=== PATIENT | male | born 1990 | race African-American/Black ===

== ENCOUNTER 2017-12-27 07:43 | Emergency (ER) | payer OTHER ==
[~2017-12-27] VITALS: Ht 177.8 cm; Wt 63.6 kg
[2017-12-27 08:34] VITALS: BP 127/75; PULSE 96; RESP 15; TEMP 97.7
--- NOTE | 2017-12-27 09:53 | PD ---
HPI Chief Complaint: Psychiatric Symptoms Time Seen by Provider: 09:33 Travel History International Travel<30 days: No Contact w/Intl Traveler<30days: No Traveled to known affect area: No History of Present Illness HPI HPI is limited secondary to patient's altered mental status and being uncooperative. He is lethargic and easily arousable. According to the Shah act report the patient was running in and out of traffic. The patient says that this was not true. He denies suicidal or homicidal ideations. He denies illicit drug use. Denies alcohol use. Unknown duration. Unknown onset. Symptoms are moderate to severe in severity. No known aggravating or relieving factors. Unknown if he has a primary care provider. Would not answer if he had significant past medical history. Denies allergies. When asked if he has having any chest pain, shortness of breath, abdominal pain, vomiting, change in urine or stool, he says no. No other modifying factors or associated signs and symptoms. PFSH Social History Tobacco Use: No Allergies-Medications (Allergen,Severity, Reaction): Coded Allergies: No Known Allergies (Unverified , 12/27/17) Review of Systems Except as stated in HPI: all other systems reviewed are Neg Physical Exam Narrative GENERAL: Well-nourished, well-developed male patient, in no acute distress; lethargic and easily arousable SKIN: Warm and dry. HEAD: Atraumatic. Normocephalic. EYES: Pupils equal and round. ENT: Mucosa pink and moist. NECK: Supple. Trachea midline. CARDIOVASCULAR: Regular rate and rhythm. No murmur appreciated. RESPIRATORY: No accessory muscle use. Clear to auscultation. Breath sounds equal bilaterally. GASTROINTESTINAL: Abdomen soft, non-tender, nondistended. Hepatic and splenic margins not palpable. Bowel sounds are active 4 quadrants. MUSCULOSKELETAL: No obvious deformities. No clubbing. No cyanosis. No edema. NEUROLOGICAL: Lethargic and easily arousable. And oriented. No obvious cranial nerve deficits. Motor grossly within normal limits. Slurred speech. Moves all extremities. 5/5 strength to all extremities. PSYCHIATRIC: No delusional thought processes. No hallucinations. Data Data Last Documented VS Vital Signs Date Time Temp Pulse Resp B/P (MAP) Pulse Ox O2 Delivery O2 Flow Rate FiO2 12/27/17 08:34 97.7 96 15 127/75 (92) Orders Orders Complete Blood Count With Diff (12/27/17 09:15) Comprehensive Metabolic Panel (12/27/17 09:15) Thyroid Stimulating Hormone (12/27/17 09:15) Psych Screen (12/27/17 09:15) Drug Screen, Random Urine (12/27/17 09:15) Alcohol (Ethanol) (12/27/17 09:15) Salicylates (Aspirin) (12/27/17 09:15) Tylenol (Acetaminophen) (12/27/17 09:15) Sodium Chlor 0.9% 1000 Ml Inj (Ns 1000 M (12/27/17 10:00) Ct Brain W/O Iv Contrast(Rout) (12/27/17 ) MDM Medical Decision Making Medical Screen Exam Complete: Yes Emergency Medical Condition: Yes Medical Record Reviewed: Yes Differential Diagnosis Intoxication, polysubstance abuse, psychosis, suicidal attempt, medical clearance for psychiatric admission Narrative Course Patient presents under a Shah act. Physical examination and vital signs are essentially unremarkable. Patient has no medical complaints to report. Psych screen has been ordered. If the laboratory results are unremarkable, the patient will be medically cleared for psychiatric evaluation and disposition. CT had ordered for altered mental status and concludes: No acute disease. Diagnosis Primary Impression: Medical clearance for psychiatric admission Additional Impression: Altered mental status Qualified Codes: R41.82 - Altered mental status, unspecified Condition: Stable Zoe Charles Dec 27, 2017 09:53
[2017-12-27] MEDS ORDERED: SODIUM CHLOR 0.9% 1000 ML INJ 1,000 ML IV ONE (10:00)
--- NOTE | 2017-12-27 10:24 | RADRPT ---
EXAM DATE/TIME: 12/27/2017 10:11 [facility] COMPARISON: No previous studies available for comparison. INDICATIONS : Altered mental status. RADIATION DOSE: 56.35 CTDIvol (mGy) MEDICAL HISTORY : Non-responsive. SURGICAL HISTORY : Non-responsive. ENCOUNTER: Initial ACUITY: 1 day PAIN SCALE: Non-responsive LOCATION: cranial TECHNIQUE: Multiple contiguous axial images were obtained of the head. Using automated exposure control and adj ustment of the mA and/or kV according to patient size, radiation dose was kept as low as reasonably a chievable to obtain optimal diagnostic quality images. DICOM format image data is available electro nically for review and comparison. FINDINGS: CEREBRUM: The ventricles are normal for age. No evidence of midline shift, mass lesion, hemorrhage or acute in farction. No extra-axial fluid collections are seen. POSTERIOR FOSSA: The cerebellum and brainstem are intact. The 4th ventricle is midline. The cerebellopontine angle i s unremarkable. EXTRACRANIAL: The visualized portion of the orbits is intact. SKULL: The calvaria is intact. No evidence of skull fracture. CONCLUSION: No acute disease. Samuel Perkins MD on December 27, 2017 at 10:20 Board Certified Radiologist. This report was verified electronically.
[2017-12-27 10:49] LABS: AUTOMATED NEUTROPHIL # 3.7 TH/MM3 (1.8-7.7); BASOPHIL % 0.7 % (0.0-2.0); EOSINOPHIL # 0.3 TH/MM3 (0-0.4); EOSINOPHIL % 4.6 % (0.0-4.0); HEMOGLOBIN 14.4 GM/DL (13.0-17.0); LYMPH % 30.3 % (9.0-44.0); MEAN CELL VOLUME 91.3 FL (80.0-100.0); MEAN CORPUSCULAR HEMOGLOBIN 30.6 PG (27.0-34.0); MEAN CORPUSCULAR HGB CONC 33.5 % (32.0-36.0); MEAN PLATELET VOLUME 9.1 FL (7.0-11.0); MONO % 8.9 % (0.0-8.0); MONOCYTE # 0.6 TH/MM3 (0-0.9); NEUT % 55.5 % (16.0-70.0); PLATELET COUNT 181 TH/MM3 (150-450); RED BLOOD COUNT 4.71 MIL/MM3 (4.50-5.90); RED CELL DISTRIBUTION WIDTH 13.4 % (11.6-17.2); WHITE BLOOD COUNT 6.7 TH/MM3 (4.0-11.0)
[2017-12-27 11:37] LABS: ALKALINE PHOSPHATASE 56 U/L (45-117); ALT (GPT) 44 U/L (12-78); AST (GOT) 83 U/L (15-37); BICARBONATE 25.2 MEQ/L (21.0-32.0); BLOOD UREA NITROGEN 17 MG/DL (7-18); CHLORIDE 106 MEQ/L (98-107); CREATININE 0.96 MG/DL (0.60-1.30); GLOMERULAR FILTRATION RATE 94 ML/MIN (>89); GLUCOSE,RANDOM 94 MG/DL (74-106); SODIUM (NA) 140 MEQ/L (136-145); TOTAL BILIRUBIN ADULT 0.8 MG/DL (0.2-1.0); TOTAL PROTEIN 7.1 GM/DL (6.4-8.2)
[2017-12-27 11:40] LABS: ACETAMINOPHEN LESS THAN 2.0 MCG/ML (10.0-30.0)
--- NOTE | 2017-12-27 16:07 | PD ---
History of Present Illness Chief Complaint: Psychiatric Symptoms Time Seen by Provider: 15:40 Travel History International Travel<30 Days: No Contact w/Intl Traveler<30days: No Known affected area: No Legal Status Legal Status: Shah Act History of Present Illness: History of Present Illness HPI 27-year-old, male who presents to the ED under a Shah act initiated by law enforcement. The Shah act alleges that the patient was running into vehicles on the roadway. He stated that the birds are talking to him. Upon arrival to the ED the patient was uncooperative and described as lethargic. There is documentation that the patient denied that he was running into traffic. He also denied any suicidal or homicidal ideation. The patient was allowed to sleep for several hours in the ED. Registration staff remember the patient and reported that he was seen in the ED several days ago under a [place]. At that time it was reported that he was walking around naked. Patient is found sleeping. He has refused to provide any information to the nurses. He becomes angry when he is awoken for evaluation. States " leave me the fuck alone. I am here to sleep. He also demands to be given something to eat. I contacted his next of kin listed as Anay Tucker at [phone]. She states that her son Iron is in [place]. That she has a son by the name of Gregg who is supposed to be at a rehabilitation / treatment center in [place]. She states that he uses heroin. He has no psychiatric history. She gives as a date of 09/23[birth year]1991. She also indicates that it is possible that the patient is not providing his name because he knows that she has filed a act on his behalf. PFSH Past Medical History Medical History: Unable to Obtain Immunizations Current: Yes (UNABLE TO OBTAIN) Tetanus Vaccination: Unknown Past Surgical History Surgical History: Unable to Obtain Psychiatric History Psychiatric History Hx Psychiatric Treatment: None reason reported by the next of kin History of Inpatient Treatment: No Social History As per his mother, he is from [place] and is in the [facility] in a rehab facility. Hx Alcohol Use: No (UNABLE TO OBTAIN) Hx Tobacco Use: No (UNABLE TO OBTAIN) Hx Substance Use: Yes Substance Use Type: Heroin Hx of Substance Use Treatment: Yes (Most recently in [place] at a rehab facility) Family Psychiatric History Unable to obtain Allergies-Medications (Allergen,Severity, Reaction): Coded Allergies: No Known Allergies (Unverified , 12/27/17) Reported Meds & Prescriptions Reported Meds & Active Scripts Active Active Prescriptions or Reported Medications Unobtainable Review of Systems ROS Limitations: Uncooperative Mental Status Examination Appearance: Disheveled Consciousness: Asleep Motor Activity: Normal gait Speech: Unremarkable Language: Adequate Fund of Knowledge: Adequate (Unable to evaluate) Attention and Concentration: Adequate Memory: Unremarkable (Unable to evaluate) Mood: Angry Affect: Irritable Thought Process & Associations: Intact, Logical, Goal directed Thought Content: Appropriate Hallucination Type: None Suicidal Ideation: No Suicidal Plan: No Suicidal Intention: No Homicidal Ideation: No Homicidal Plan: No Homicidal Intention: No Insight: Poor Judgment: Impulsive MDM Medical Decision Making Medical Record Reviewed: Yes Assessment/Plan 27 year old male who presents to ED under a BA. He does not provide his correct name or date of . He gives his brother's name as well as his brother's date of . He refuses to provide any information and becomes angry when he is asked to participate inn his care. The patient demands to be left alone to sleep as well as demanding food. After collateral information is obtained from the patient's mother who is listed as his next of kin, it is determined that the patient does not have a psychiatric illness but rather he is a known heroine user. The patient appears to be malingering in order to obtain halfway at this point. I find no criteria to keep him under the Shah act. The patient shows no cognitive impairment. He does demonstrate high degree of manipulative behavior by providing his brother's name as well as his brothers date of knowing that he has a [place] act filed on his behalf. The BA is lifted. Orders Orders Complete Blood Count With Diff (12/27/17 09:15) Comprehensive Metabolic Panel (12/27/17 09:15) Thyroid Stimulating Hormone (12/27/17 09:15) Psych Screen (12/27/17 09:15) Drug Screen, Random Urine (12/27/17 09:15) Alcohol (Ethanol) (12/27/17 09:15) Salicylates (Aspirin) (12/27/17 09:15) Tylenol (Acetaminophen) (12/27/17 09:15) Sodium Chlor 0.9% 1000 Ml Inj (Ns 1000 M (12/27/17 10:00) Ct Brain W/O Iv Contrast(Rout) (12/27/17 ) Diet Regular Basic (12/27/17 Lunch) Diet Regular Basic (12/27/17 Dinner) Results Vital Signs Date Time Temp Pulse Resp B/P (MAP) Pulse Ox O2 Delivery O2 Flow Rate FiO2 12/27/17 08:34 97.7 96 15 127/75 (92) Laboratory Tests Test 12/27/17 08:15 White Blood Count 6.7 Red Blood Count 4.71 Hemoglobin 14.4 Hematocrit 43.0 Mean Corpuscular Volume 91.3 Mean Corpuscular Hemoglobin 30.6 Mean Corpuscular Hemoglobin Concent 33.5 Red Cell Distribution Width 13.4 Platelet Count 181 Mean Platelet Volume 9.1 Neutrophils (%) (Auto) 55.5 Lymphocytes (%) (Auto) 30.3 Monocytes (%) (Auto) 8.9 Eosinophils (%) (Auto) 4.6 Basophils (%) (Auto) 0.7 Neutrophils # (Auto) 3.7 Lymphocytes # (Auto) 2.0 Monocytes # (Auto) 0.6 Eosinophils # (Auto) 0.3 Basophils # (Auto) 0.0 CBC Comment DIFF FINAL Differential Comment Blood Urea Nitrogen 17 Creatinine 0.96 Random Glucose 94 Total Protein 7.1 Albumin 4.0 Calcium Level 9.0 Alkaline Phosphatase 56 Aspartate Amino Transf (AST/SGOT) 83 Alanine Aminotransferase (ALT/SGPT) 44 Total Bilirubin 0.8 Sodium Level 140 Potassium Level 3.6 Chloride Level 106 Carbon Dioxide Level 25.2 Anion Gap 9 Estimat Glomerular Filtration Rate 94 Thyroid Stimulating Hormone 3rd Gen 1.560 Salicylates Level LESS THAN 1.7 Acetaminophen Level LESS THAN 2.0 Ethyl Alcohol Level 49 Diagnosis Primary Impression: Substance use disorder Additional Impression: Altered mental status Psychiatrically Cleared: Yes Med/ Other Pt Specific Info: No Meds Exist/No RX given Prescriptions Unable to Obtain Active Prescriptions or Reported Meds Disposition: 01 DISCHARGE HOME Condition: Stable Problem Qualifiers Additional Impression: Altered mental status Qualified Codes: R41.82 - Altered mental status, unspecified Reina Shaikh [facility] Dec 27, 2017 16:07
== END 2017-12-27 16:15 | disposition home or self-care (01) ==
LOC: NEPJ 07:43
DX: R41.82 Altered mental status, unspecified (principal)
CPT/HCPCS: 70450; 80053; 80307; 84443; 85025; 99284; J7030